=== PATIENT | female | born 1965 | race Caucasian/White ===

== ENCOUNTER → 2017-05-14 | Outpatient (CLI) | payer OTHER ==
--- NOTE | 2017-05-14 16:38 | P.HPBAR ---
Bariatric H&P - History & Physicial H&P Date: 05/14/17 History & Physicial: Visit/CC: Patient initial contact: Initial weight: Initial weight in pounds: Height: Initial BMI: Last weight: Current weight: Current weight in pounds: Current BMI: [place] body weight (based on NIH guidelines): Excess body weight loss: The patient is a 51 year-old F who presents for Bariatric Assessment. Patient presents today for lab band follow. She's not been seen for years. She states she's gained approximately 50 pounds in the last several years. Her current weight is 204 pounds. She is requesting a fill. Past Medical History Past Medical History: Hypertension, Osteoarthritis (OA) Additional Past Medical History / Comment(s): low back/bilateral knee arthritis , migraine and cluster headaches, constant constipation led to anal fissure History of Any Multi-Drug Resistant Organisms: None Reported Past Surgical History: Bariatric Surgery, Cholecystectomy Additional Past Surgical History / Comment(s): attempted appendectomy but surgeon in [place] stated he could not find the organ, lysis of adhesions performed at this time. Past Anesthesia/Blood Transfusion Reactions: No Reported Reaction Additional Past Anesthesia/Blood Transfusion Reaction / Comm: NO transusion to date Past Psychological History: Depression Additional Psychological History / Comment(s): Patient takes Lexapro 20mg daily Smoking Status: Never smoker Past Alcohol Use History: None Reported Past Drug Use History: None Reported Surgical - Exam - General well developed, no distress - Eyes PERRL - ENT normal pinna - Neck no masses - Respiratory normal expansion - Cardiovascular Rhythm: regular - Abdomen Abdomen: soft, non tender Bariatric Assessment & Plan Plan: Patient LAP-BAND was adjusted. She had 0.4 added to her band. She currently is 4.6 in the band. She is able require difficulty. She'll follow-up in 4 weeks. Bariatric Checklist Checklist: Plan: Checklist: EGD: 1. Hiatal hernia: 2. H. Pylori: HgbA1c: Vitamin D: Smoking: Never smoker Primary care physician referral: Psychiatry clearance: Cardiology clearance: Sleep study: Diet journal: VTE risk score: VTE risk level: Rehab needs at discharge:
[2017-05-14 17:04] VITALS: BP 150/78; PULSE 88; RESP 15; TEMP 98.7; BMI 34.0
== END | disposition home or self-care (01) ==
LOC: BARWHC3 15:10
PROVIDERS: ATTEND Surgery
DX: Z48.815 Encounter for surgical aftercare following surgery on the digestive system (principal); Z98.84 Bariatric surgery status
CPT/HCPCS: 99212

== ENCOUNTER → 2021-04-25 | Outpatient (CLI) | payer BC ==
[2021-04-25 15:17] VITALS: BP 124/71; PULSE 83; TEMP 98.2; BMI 29.1
--- NOTE | 2021-04-25 15:41 | P.HPBAR ---
Bariatric H&P - History & Physicial H&P Date: 04/25/21 History & Physicial: Visit/CC: lap band follow up Patient initial contact: Initial weight: 108.862 kg Initial weight in pounds: 240.00 Height: 5 ft 5 in Initial BMI: 39.9 Last weight: Current weight: 79.379 kg Current weight in pounds: 175.00 Current BMI: 29.1 [place] body weight (based on NIH guidelines): 56.699 kg Excess body weight loss: 56.5% The patient is a 55 year-old F who presents for Bariatric Assessment. Patient presents today for bariatric follow-up. She has complaints of GERD. Apparently she has undergone EGD with a heel reducer at [facility] who states she has a hiatal hernia. She also has evidence of esophagitis. Past Medical History Past Medical History: Hypertension, Osteoarthritis (OA) Additional Past Medical History / Comment(s): low back/bilateral knee arthritis, migraine and cluster headaches, constant constipation led to anal fissure History of Any Multi-Drug Resistant Organisms: None Reported Past Surgical History: Bariatric Surgery, Cholecystectomy Additional Past Surgical History / Comment(s): attempted appendectomy but surgeon in [place] stated he could not find the organ, lysis of adhesions performed at this time. Past Anesthesia/Blood Transfusion Reactions: No Reported Reaction Additional Past Anesthesia/Blood Transfusion Reaction / Comm: NO transusion to date Smoking Status: Never smoker Surgical - Exam Vital Signs Temp Pulse BP 98.2 F 83 124/71 04/25/21 15:13 04/25/21 15:13 04/25/21 15:13 - General well developed, well nourished, no distress - Eyes PERRL - ENT normal pinna - Neck no masses - Respiratory normal expansion - Cardiovascular Rhythm: regular - Abdomen Abdomen: soft, non tender Bariatric Assessment & Plan Plan: Patient LAP-BAND was adjusted. She has 5.5 mL removed from the LAP-BAND. Patient will follow-up in 4 weeks. Continue her GERD medications. Bariatric Checklist Checklist: Plan: Checklist: EGD: 1. Hiatal hernia: 2. H. Pylori: HgbA1c: Vitamin D: Smoking: Never smoker Primary care physician referral: Gerry Wise Psychiatry clearance: Cardiology clearance: Sleep study: Diet journal: VTE risk score: VTE risk level: Rehab needs at discharge:
--- NOTE | 2021-04-25 16:00 | FL ---
Limited barium swallow HISTORY: Dysphagia Patient was given high density barium to drink. Attention directed to the level the lap band. Contrast courses to the level the lap band without difficulty. Lap band shows a normal orientation. T here is no evident leak or obstruction to flow. Surgical clips present in the right upper quadrant. 8 images obtained to document procedure. 83 seconds of fluoroscopy time were utilized. IMPRESSION: No evident obstruction at the level the lap band.
== END | disposition home or self-care (01) ==
LOC: BARWHC3 14:05
PROVIDERS: ATTEND Surgery
DX: R13.10 Dysphagia, unspecified (principal)
CPT/HCPCS: 74220; 99211

== ENCOUNTER → 2021-06-13 | Outpatient (CLI) | payer BC ==
[2021-06-13 14:28] VITALS: BP 130/81; PULSE 79; RESP 16; TEMP 97.8; BMI 32.4
--- NOTE | 2021-06-13 15:26 | P.HPBAR ---
Bariatric H&P - History & Physicial H&P Date: 06/13/21 History & Physicial: Visit/CC: lap band f/u Patient initial contact: Initial weight: 108.862 kg Initial weight in pounds: 240.00 Height: 5 ft 5 in Initial BMI: 39.9 Last weight: Current weight: 88.451 kg Current weight in pounds: 195.00 Current BMI: 32.4 [place] body weight (based on NIH guidelines): 56.699 kg Excess body weight loss: 39.1% The patient is a 56 year-old F who presents for Bariatric Assessment. Patient resents today for bariatric follow-up. She is requesting a fill of her band. Currently is hungry. Past Medical History Past Medical History: Hypertension, Osteoarthritis (OA) Additional Past Medical History / Comment(s): low back/bilateral knee arthritis, migraine and cluster headaches, constant constipation led to anal fissure History of Any Multi-Drug Resistant Organisms: None Reported Past Surgical History: Bariatric Surgery, Cholecystectomy Additional Past Surgical History / Comment(s): attempted appendectomy but surgeon in [place] stated he could not find the organ, lysis of adhesions performed at this time. Past Anesthesia/Blood Transfusion Reactions: No Reported Reaction Additional Past Anesthesia/Blood Transfusion Reaction / Comm: NO transusion to date Past Psychological History: Depression Additional Psychological History / Comment(s): Patient takes Lexapro 20mg daily Smoking Status: Never smoker Past Alcohol Use History: None Reported Past Drug Use History: None Reported Surgical - Exam Vital Signs Temp Pulse Resp BP 97.8 F 79 16 130/81 06/13/21 14:24 06/13/21 14:24 06/13/21 14:24 06/13/21 14:24 - General well developed, well nourished, no distress - Eyes PERRL - ENT no hearing loss - Abdomen Abdomen: soft, non tender Bariatric Assessment & Plan Plan: Patient's lap band adjusted she had 1 mL added to her band. She will follow-up in 4 weeks. Bariatric Checklist Checklist: Plan: Checklist: EGD: 1. Hiatal hernia: 2. H. Pylori: HgbA1c: Vitamin D: Smoking: Never smoker Primary care physician referral: Gerry Wise Psychiatry clearance: Cardiology clearance: Sleep study: Diet journal: VTE risk score: VTE risk level: Rehab needs at discharge:
== END | disposition home or self-care (01) ==
LOC: BARWHC3 14:06
PROVIDERS: ATTEND Surgery
DX: Z98.84 Bariatric surgery status (principal)
CPT/HCPCS: 99212

== ENCOUNTER → 2021-08-08 | Outpatient (CLI) | payer BC ==
[2021-08-08 14:29] VITALS: BP 138/86; PULSE 80; TEMP 98.2; BMI 34.2
--- NOTE | 2021-08-08 14:51 | P.HPBAR ---
Bariatric H&P - History & Physicial H&P Date: 08/08/21 History & Physicial: Visit/CC: lap band follow up Patient initial contact: Initial weight: 108.862 kg Initial weight in pounds: 240.00 Height: 5 ft 5 in Initial BMI: 39.9 Last weight: Current weight: 93.44 kg Current weight in pounds: 206.00 Current BMI: 34.2 [place] body weight (based on NIH guidelines): 56.699 kg Excess body weight loss: 29.5% The patient is a 56 year-old F who presents for Bariatric Assessment. Patient presents for LAP-BAND adjustment. She currently is hungry. Past Medical History Past Medical History: Hypertension, Osteoarthritis (OA) Additional Past Medical History / Comment(s): low back/bilateral knee arthritis, migraine and cluster headaches, constant constipation led to anal fissure History of Any Multi-Drug Resistant Organisms: None Reported Past Surgical History: Bariatric Surgery, Cholecystectomy Additional Past Surgical History / Comment(s): attempted appendectomy but surgeon in [place] stated he could not find the organ, lysis of adhesions performed at this time. Past Anesthesia/Blood Transfusion Reactions: No Reported Reaction Additional Past Anesthesia/Blood Transfusion Reaction / Comm: NO transusion to date Past Psychological History: Depression Additional Psychological History / Comment(s): Patient takes Lexapro 20mg daily Smoking Status: Never smoker Past Alcohol Use History: None Reported Past Drug Use History: None Reported Surgical - Exam Vital Signs Temp Pulse BP 98.2 F 80 138/86 08/08/21 14:26 08/08/21 14:26 08/08/21 14:26 - General well developed, well nourished, no distress - Eyes PERRL - ENT normal pinna - Neck no masses - Respiratory normal expansion - Cardiovascular Rhythm: regular - Abdomen Abdomen: soft, non tender Bariatric Assessment & Plan Plan: Patient's LAP-BAND was attempted to be adjusted. The port has rotated is pos sible accessed with a needle. Patient be scheduled for revision of LAP-BAND port. Bariatric Checklist Checklist: Plan: Checklist: EGD: 1. Hiatal hernia: 2. H. Pylori: HgbA1c: Vitamin D: Smoking: Never smoker Primary care physician referral: Gerry Wise Psychiatry clearance: Cardiology clearance: Sleep study: Diet journal: VTE risk score: VTE risk level: Rehab needs at discharge:
[2021-08-08 22:26] LABS: Basophils # (A) 0.09 X 10*3/uL (0.00-0.10); Basophils % (A) 1.1 %; Eosinophils # (A) 0.45 X 10*3/uL (0.04-0.35); Eosinophils % (A) 5.3 %; HCT 40.7 % (37.2-46.3); HGB 12.3 g/dL (12.0-15.0); Immature Grans, Automated 0.5 %; Lymphocytes # (A) 1.65 X 10*3/uL (0.90-5.00); Lymphocytes % (A) 19.6 %; MCH 26.7 pg (27.0-32.0); MCHC 30.2 g/dL (32.0-37.0); MCV 88.5 fL (80.0-97.0); Mean Platelet Volume 10.7 fL (9.5-12.2); Monocytes # (A) 0.63 X 10*3/uL (0.20-1.00); Monocytes % (A) 7.5 %; NRBC Per 100 WBC 0 /100 WBCS (0.0-0.0); Neutrophils # (A) 5.56 X 10*3/uL (1.80-7.70); Platelet Count 264 X 10*3/uL (140-440); RDW 14.9 % (11.5-14.5); WBC 8.42 X 10*3/uL (4.50-10.00)
[2021-08-08 22:28] LABS: African American GFR (CKD) 73.4 (60.0-200.0); Albumin 4.2 g/dL (3.8-4.9); Albumin/Globulin Ratio 1.5 (1.60-3.17); BUN/Creat Ratio 13.4 Ratio (12.00-20.00); Blood Urea Nitrogen 13.4 mg/dL (9.0-27.0); Calcium 9.3 mg/dL (8.7-10.3); Globulin 2.8 g/dL (1.6-3.3); Non-African American GFR(CKD) 63.4 (60.0-200.0); Potassium 4.4 mmol/L (3.5-5.5); Total Bilirubin 0.5 mg/dL (0.30-1.20)
== END | disposition home or self-care (01) ==
LOC: BARWHC3 13:40
PROVIDERS: ATTEND Surgery
DX: Z01.812 Encounter for preprocedural laboratory examination (principal)
CPT/HCPCS: 80053; 85025; 93005; 99211

== ENCOUNTER 2021-09-26 07:28 | Day surgery (SDC) | payer BC ==
[2021-09-21 16:20] VITALS: BMI 33.3
[~2021-09-26 07:28] MED LIST: DEXAMETHASONE SOD PHOSPHATE 4 MG/ML 1 ML VIAL IV ONE; HYDROmorphone 0.5 MG/0.5 ML SYRINGE IVP PRN; LACTATED RINGERS 1,000 ML IV SCH; LIDOCAINE 1% (10MG/ML) FOR IV START INTRADERMA PRN; MIDAZOLAM 2 MG/2 ML VIAL IV PRN; ONDANSETRON 4 MG/2 ML VIAL IVP ONE
--- NOTE | 2021-09-26 09:01 | P.GSHP ---
History of Present Illness H&P Date: 09/26/21 Chief Complaint: LAP-BAND port malfunction This a 56-year-old female who's developed a LAP-BAND port malfunction. Patient presents today for laparoscopic removal and replacement of LAP-BAND port Past Medical History Past Medical History: Eye Disorder, Hearing Disorder / Deafness, Hypertension, Osteoarthritis (OA), Sleep Apnea/CPAP/BIPAP Additional Past Medical History / Comment(s): Bilateral knee pain, migraine and cluster headaches, constant constipation(led to anal fissure), has BIPAP, "bad about using it", varicose veins, left cataract, some trouble hearing. History of Any Multi-Drug Resistant Organisms: None Reported Past Surgical History: Bariatric Surgery, Cholecystectomy Additional Past Surgical History / Comment(s): Attempted appendectomy but surgeon in [place] stated he could not find the organ, lysis of adhesions performed at this time. Past Anesthesia/Blood Transfusion Reactions: No Reported Reaction, Motion Sickness Additional Past Anesthesia/Blood Transfusion Reaction / Comment(s): No transusion to date. Past Psychological History: Depression Smoking Status: Never smoker Past Alcohol Use History: None Reported Past Drug Use History: None Reported - Past Family History Mother Family Medical History: No Reported History Father Family Medical History: Deep Vein Thrombosis (DVT) Medications and Allergies Home Medications Medication Instructions Recorded Confirmed Type Propranolol HCl [Inderal Xl] 80 mg PO HS 05/14/17 09/26/21 History Cyclobenzaprine [Flexeril] 5 mg PO TID PRN 04/27/21 09/26/21 History FLUoxetine HCL 40 mg PO BID 04/27/21 09/26/21 History Iron 10 mg PO QAM 04/27/21 09/26/21 History hydrOXYzine HCL [Atarax] 25 mg PO DAILY 04/27/21 09/26/21 History rOPINIRole HCL [Requip] 0.25 mg PO TID 04/27/21 09/26/21 History Multivit-Min/FA/Lycopen/Lutein 1 each PO DAILY 09/22/21 09/26/21 History [Centrum Silver Tablet] Pramipexole [Mirapex] 0.5 mg PO HS 09/22/21 09/26/21 History Allergies Allergy/AdvReac Type Severity Reaction Status Date / Time No Known Allergies Allergy Verified 09/26/21 07:42 Surgical - Exam Vital Signs Temp Pulse Resp BP Pulse Ox 97.4 F L 66 18 146/79 98 09/26/21 07:52 09/26/21 07:52 09/26/21 07:52 09/26/21 07:52 09/26/21 07:52 - General well developed, well nourished, no distress - Eyes PERRL - ENT normal pinna - Neck no masses - Respiratory normal expansion - Cardiovascular Rhythm: regular - Abdomen Abdomen: soft, non tender Assessment and Plan Assessment: LAP-BAND port malfunction. We'll perform laparoscopic removal and replacement of LAP-BAND port
[2021-09-26] MEDS ORDERED: ROCURONIUM 10 MG/ML (5 ML VIAL) IV ONE (09:11)
[2021-09-26] MEDS ORDERED: MIDAZOLAM 2 MG/2 ML VIAL ONE (09:11)
[2021-09-26] MEDS ORDERED: fentaNYL (PF) 50 MCG/ML 2 ML AMP ONE (09:11)
[2021-09-26] MEDS ORDERED: SUCCINYLCHOLINE CHLORIDE 200 MG/10 ML VIAL IV ONE (09:11)
[2021-09-26] MEDS ORDERED: KETOROLAC 15 MG/ML 1 ML VIAL ONE (09:11)
[2021-09-26] MEDS ORDERED: GLYCOPYRROLATE 0.2 MG/ML 2 ML VIAL ONE (09:11)
[2021-09-26] MEDS ORDERED: LIDOCAINE 2% INJ 20 MG/ML (2 ML VIAL) ONE (09:11)
[2021-09-26] MEDS ORDERED: PROPOFOL 10 MG/ML 20 ML VIAL IV ONE (09:11)
[2021-09-26] MEDS ORDERED: NEOSTIGMINE 1 MG/ML 10 ML VIAL ONE (09:11)
[2021-09-26] MEDS ORDERED: BUPIVACAIN-EPI 0.25%-1:200,000 30 ML VIAL SQ ONE (09:41)
--- NOTE | 2021-09-26 10:10 | P.OP ---
Date of Procedure: 09/26/21 Preoperative Diagnosis: LAP-BAND port malfunction Postoperative Diagnosis: LAP-BAND port malfunction Procedure(s) Performed: Laparoscopic removal of LAP-BAND port and replacement of LAP-BAND port Transversus abdominis plane block Anesthesia: SERVANDO Surgeon: Paco Fan Estimated Blood Loss (ml): 5 Pathology: none sent Condition: stable Disposition: PACU Description of Procedure: The patient's placed on the operating table in the supine position she received general endotracheal tube anesthesia. Her abdomen was prepped and draped usual fashion. The skin was incised at the old LAP-BAND port site the left cautery subcutaneous tissue divided. The LAP-BAND port was dissected free and then the LAP-BAND PEG tube was cut and the port was removed. Using a 5 mm optical trocar under direct visualization of the pleural cavity was performed and the trochars placed into the. Cavity. There was insufflated after adequate insufflation the 5 mm laparoscope was placed back into the pleural cavity. A transverse abdominal block was performed using 1% local Xylocaine in 4 quad rants. A 10 mm trochars placed in the right upper quadrant and then the catheter was brought up through this trocar site. The trochars withdrawn. The new LAP-BAND port connected to the connecting tube. The LAP-BAND port was then secured to the fascia using 0 Nurolon suture. The LAP-BAND port was flushed with saline and then 2 mL of saline was instilled into the port. The skin was then closed interrupted 3-0 Monocryl suture. Dermabond dressings was applied. Patient top she will was sent to recovery in stable condition.
[2021-09-26 10:14] VITALS: RESP 16; TEMP 96.9
[2021-09-26] MEDS ORDERED: hydrALAZINE HCL 20 MG/ML 1 ML VIAL IVP ONE (10:20)
[2021-09-26] MEDS ORDERED: LACTATED RINGERS 1,000 ML IV ONE (10:29)
[2021-09-26 11:44] VITALS: BP 138/71; PULSE 69
== END 2021-09-26 12:22 | disposition home or self-care (01) ==
LOC: OR 07:28
PROVIDERS: ATTEND Surgery
DX: T85.698A Other mechanical complication of other specified internal prosthetic devices, implants and grafts, initial encounter (principal); Y73.2 Prosthetic and other implants, materials and accessory gastroenterology and urology devices associated with adverse incidents; Z98.84 Bariatric surgery status; I10 Essential (primary) hypertension; F32.A Depression, unspecified; G47.33 Obstructive sleep apnea (adult) (pediatric); M19.90 Unspecified osteoarthritis, unspecified site; G43.909 Migraine, unspecified, not intractable, without status migrainosus; Z79.899 Other long term (current) drug therapy; Z82.49 Family history of ischemic heart disease and other diseases of the circulatory system; Z90.49 Acquired absence of other specified parts of digestive tract
CPT/HCPCS: 43773; C1751; J2250; J0330; J0360; J1100; J2710; J0690; J2405; J3010; J1885; J2704; J1170; J2001

== ENCOUNTER → 2022-08-07 | Outpatient (CLI) | payer BC ==
[2022-08-07 14:48] VITALS: BP 108/59; PULSE 66; TEMP 98.1; BMI 33.8
--- NOTE | 2022-08-28 11:57 | P.HPBAR ---
Bariatric H&P - History & Physicial H&P Date: 08/07/22 History & Physicial: Visit/CC: lap band Patient initial contact: Initial weight: 108.862 kg Initial weight in pounds: 240.00 Height: 5 ft 5 in Initial BMI: 39.9 Last weight: Current weight: 92.351 kg Current weight in pounds: 203.60 Current BMI: 33.8 [place] body weight (based on NIH guidelines): 56.699 kg Excess body weight loss: 31.6% The patient is a 57 year-old F who presents for Bariatric Assessment. Patient presents today for bariatric follow-up. He feels that her LAP-BAND was appropriately adjusted. She's had some minimal GERD. She denies any significant dysphagia. Past Medical History Past Medical History: Eye Disorder, Hearing Disorder / Deafness, Hypertension, Osteoarthritis (OA), Sleep Apnea/CPAP/BIPAP Additional Past Medical History / Comment(s): Bilateral knee pain, migraine and cluster headaches, constant constipation(led to anal fissure), has BIPAP, "bad about using it", varicose veins, left cataract, some trouble hearing. History of Any Multi-Drug Resistant Organisms: None Reported Past Surgical History: Bariatric Surgery, Cholecystectomy Additional Past Surgical History / Comment(s): Attempted appendectomy but surgeon in [place] stated he could not find the organ, lysis of adhesions performed at this time. Lap band 2009 and port replacement 2021. Left hand surgery July 2022 Past Anesthesia/Blood Transfusion Reactions: No Reported Reaction, Motion Sickness Additional Past Anesthesia/Blood Transfusion Reaction / Comm: No transusion to date. Past Psychological History: Depression Additional Psychological History / Comment(s): Patient takes Lexapro 20mg daily Smoking Status: Never smoker Past Alcohol Use History: None Reported Past Drug Use History: None Reported - Past Family History Mother Family Medical History: No Reported History Father Family Medical History: Deep Vein Thrombosis (DVT) Surgical - Exam Vital Signs Temp Pulse BP 98.1 F 66 108/59 08/07/22 14:43 08/07/22 14:43 08/07/22 14:43 - General well developed, well nourished, no distress - Eyes PERRL - ENT normal pinna - Neck no masses - Respiratory normal expansion - Cardiovascular Rhythm: regular - Abdomen Abdomen: soft, non tender Bariatric Assessment & Plan Plan: Patient's GERD is minimal and will be observed. She'll follow-up in 4 weeks. Bariatric Checklist Checklist: Plan: Checklist: EGD: 1. Hiatal hernia: 2. H. Pylori: HgbA1c: Vitamin D: Smoking: Never smoker Primary care physician referral: Gerry Wise Psychiatry clearance: Cardiology clearance: Sleep study: Diet journal: VTE risk score: VTE risk level: Rehab needs at discharge:
== END ==
LOC: BARWHC3 14:22
PROVIDERS: ATTEND Surgery
DX: E66.01 Morbid (severe) obesity due to excess calories (principal); K21.9 Gastro-esophageal reflux disease without esophagitis; M19.90 Unspecified osteoarthritis, unspecified site; G47.33 Obstructive sleep apnea (adult) (pediatric); Z99.89 Dependence on other enabling machines and devices; H57.9 Unspecified disorder of eye and adnexa; H91.90 Unspecified hearing loss, unspecified ear; G43.909 Migraine, unspecified, not intractable, without status migrainosus; Z98.84 Bariatric surgery status; Z88.8 Allergy status to other drugs, medicaments and biological substances
CPT/HCPCS: 99211

== ENCOUNTER 2022-08-31 08:25 | Day surgery (SDC) | payer BC ==
[2022-08-28 11:57] VITALS: BMI 33.3
[~2022-08-31 08:25] MED LIST changes: -DEXAMETHASONE SOD PHOSPHATE 4 MG/ML 1 ML VIAL IV ONE; -HYDROmorphone 0.5 MG/0.5 ML SYRINGE IVP PRN; -LIDOCAINE 1% (10MG/ML) FOR IV START INTRADERMA PRN; -MIDAZOLAM 2 MG/2 ML VIAL IV PRN; -ONDANSETRON 4 MG/2 ML VIAL IVP ONE
[2022-08-31 09:00] VITALS: TEMP 96.9
[2022-08-31] MEDS ORDERED: LIDOCAINE 2% INJ 20 MG/ML (2 ML VIAL) ONE (09:27)
[2022-08-31] MEDS ORDERED: PROPOFOL 10 MG/ML 20 ML VIAL IV ONE (09:27)
--- NOTE | 2022-08-31 09:28 | P.GSHP ---
History of Present Illness H&P Date: 08/31/22 Chief Complaint: GERD This a 57-year-old female presents today for EGD. Patient's had issues with GERD. Past Medical History Past Medical History: GERD/Reflux, Hearing Disorder / Deafness, Hypertension, Musculoskeletal Disorder, Osteoarthritis (OA), Sleep Apnea/CPAP/BIPAP Additional Past Medical History / Comment(s): Bilateral knee pain, migraine and cluster headaches, constant constipation(led to anal fissure), has BIPAP, "bad about using it", varicose veins, slight trouble hearing, dupuytren's left hand. History of Any Multi-Drug Resistant Organisms: None Reported Past Surgical History: Bariatric Surgery, Cholecystectomy Additional Past Surgical History / Comment(s): Attempted appendectomy but surgeon in [place] stated he could not find the organ, led to exploratory surgery - I did not not have an appendix, lysis of adhesions performed at this time, Lap Band 2009, lap band port replacement 2021, left hand surgery for D upuytren's with later manipulation X2, bilateral cataracts removed. Past Anesthesia/Blood Transfusion Reactions: Motion Sickness Additional Past Anesthesia/Blood Transfusion Reaction / Comment(s): No blood transfusion to date. Past Psychological History: Depression Smoking Status: Never smoker Past Alcohol Use History: None Reported Past Drug Use History: None Reported - Past Family History Mother Family Medical History: No Reported History Father Family Medical History: Deep Vein Thrombosis (DVT) Medications and Allergies Home Medications Medication Instructions Recorded Confirmed Type Propranolol HCl [Inderal Xl] 80 mg PO HS 05/14/17 08/31/22 History FLUoxetine HCL 40 mg PO BID 04/27/21 08/31/22 History hydrOXYzine HCL [Atarax] 25 mg PO TID PRN 04/27/21 08/31/22 History rOPINIRole HCL [Requip] 0.25 mg PO TID PRN 04/27/21 08/31/22 History Pramipexole [Mirapex] 0.5 mg PO HS 09/22/21 08/31/22 History Docusate [Colace] 100 mg PO BID #20 capsule 09/26/21 08/31/22 Rx Ferrous Sulfate [Iron] 325 mg PO DAILY 08/28/22 08/31/22 History traZODone HCL [Desyrel] 50 mg PO HS 08/28/22 08/31/22 History Fremanezumab-Vfrm [Ajovy SQ QMONTHLY 08/31/22 History Autoinjector] Allergies Allergy/AdvReac Type Severity Reaction Status Date / Time "Burn cream" Allergy Rash/Hives Uncoded 08/31/22 08:50 Surgical - Exam Vital Signs Temp Pulse Resp BP Pulse Ox 96.9 F L 63 18 142/66 98 08/31/22 08:48 08/31/22 08:48 08/31/22 08:48 08/31/22 08:48 08/31/22 08:48 - General well developed, well nourished, no distress - Eyes PERRL - ENT normal pinna - Neck no masses - Respiratory normal expansion - Cardiovascular Rhythm: regular - Abdomen Abdomen: soft, non tender Assessment and Plan Assessment: GERD. We'll perform EGD.
--- NOTE | 2022-08-31 09:36 | P.OP ---
Date of Procedure: 08/31/22 Preoperative Diagnosis: GERD Postoperative Diagnosis: Antral gastritis Esophagitis LAP-BAND without evidence of erosion or inflammation Procedure(s) Performed: EGD Anesthesia: MAC Surgeon: Paco Fan Pathology: other (Antrum, esophagus) Condition: stable Disposition: PACU Description of Procedure: The patient's placed on the endoscopy table in the lateral position. He received IV sedation. The gastro-/oropharynx passed in the esophagus into the stomach. Scope was placed through the pylorus. The first and second portion of the duodenum appeared normal. Scope was then brought back the antrum this. Mildly inflamed. A biopsies performed. Scope was unretroflexed and remainder the stomach appeared normal. The patient had a previously placed LAP-BAND. This was without evidence of perforation or erosion. The GE junction was at 40 cm per the distal esophagus. Inflamed. A biopsies performed. The proximal esophagus appeared normal. The was withdrawn for patient.
[2022-08-31 09:46] VITALS: RESP 16
[2022-08-31 09:56] VITALS: BP 131/84; PULSE 72
== END 2022-08-31 10:28 | disposition home or self-care (01) ==
LOC: ORWHC2ENDO 08:25
PROVIDERS: ATTEND Surgery
DX: K29.50 Unspecified chronic gastritis without bleeding (principal); K21.00 Gastro-esophageal reflux disease with esophagitis, without bleeding; Z98.84 Bariatric surgery status; I10 Essential (primary) hypertension; G47.33 Obstructive sleep apnea (adult) (pediatric); Z99.89 Dependence on other enabling machines and devices; M19.90 Unspecified osteoarthritis, unspecified site; F32.A Depression, unspecified; G43.909 Migraine, unspecified, not intractable, without status migrainosus; Z87.19 Personal history of other diseases of the digestive system; H91.90 Unspecified hearing loss, unspecified ear; I83.90 Asymptomatic varicose veins of unspecified lower extremity; Z90.49 Acquired absence of other specified parts of digestive tract; Z79.899 Other long term (current) drug therapy; Z91.048 Other nonmedicinal substance allergy status
CPT/HCPCS: 88305; 43239; J2704; J2001